=== PATIENT | female | born 1995 | race Caucasian/White ===

== ENCOUNTER 2024-09-28 15:39 | Emergency (ER) | payer OTHER ==
[2024-09-28 15:59] VITALS: BP 121/74; PULSE 91; RESP 19; TEMP 98.4; BMI 24.2
[2024-09-28] MEDS ORDERED: ACETAMINOPHEN 325 MG TABLET (FP) ONE (17:25)
[2024-09-28] MEDS: ACETAMINOPHEN 325 MG TABLET (FP) PO ONE (17:28)
[2024-09-28] MEDS: SODIUM CHLORIDE 0.9% 1000 ML INFUS.BAG IV ONE (17:54)
[2024-09-28 17:56] LABS: ABSOLUTE IMMATURE GRANULOCYTES 0.03 x10^3/uL (0.0-0.031); BASOPHILS # 0.03 x10^3/uL (0.01-0.08); EOSINOPHIL % 0.4 % (0.7-5.8); EOSINOPHILS # 0.05 x10^3/uL (0.04-0.36); MCHC 32.5 g/dl (32.2-35.5); MEAN CELL VOLUME 90.3 fl (79.4-94.8); MEAN PLT VOLUME 10.6 fl (9.4-12.3); MONOCYTE # 0.87 x10^3/uL (0.24-0.86); MONOCYTE % 7.1 % (4.7-12.5); RDW 12.5 % (12.1-16.5)
[2024-09-28 18:11] LABS: GLUCOSE,RANDOM 93.0 mg/dL (74-106); TOT PROT 8.5 g/dl (6.4-8.2)
[2024-09-28 18:12] LABS: CO2 23.0 mmol/L (21-32)
[2024-09-28 18:13] LABS: ALK PHOS 67.0 U/L (40-150)
[2024-09-28 18:16] LABS: CREATININE 0.55 mg/dL (0.55-1.3); SGOT/AST 30.0 U/L (5-34); SGPT/ALT 71.0 U/L (0-55)
== END 2024-09-28 19:16 | disposition home or self-care (01) ==
LOC: JER 15:39
DX: O21.9 Vomiting of pregnancy, unspecified (principal); O26.891 Other specified pregnancy related conditions, first trimester; R10.31 Right lower quadrant pain; Z3A.01 Less than 8 weeks gestation of pregnancy
CPT/HCPCS: 36415; 76815; 80053; 84702; 84703; 85025; 99284-25